=== PATIENT | female | born 1990 | race American Indian/Alaskan Native ===

== ENCOUNTER 2016-07-07 00:57 | Emergency (ER) | payer MEDICAID ==
[2016-07-07 01:38] VITALS: BP 130/82
== END 2016-07-07 05:40 | disposition left against medical advice (07) ==
LOC: ED 00:57
DX: G43.909 Migraine, unspecified, not intractable, without status migrainosus (principal); Z53.21 Procedure and treatment not carried out due to patient leaving prior to being seen by health care provider